=== PATIENT | male | born 1985 | race Caucasian/White ===

== ENCOUNTER → 2025-08-21 | Day surgery (SDC) | payer OTHER ==
[~2025-08-21] MED LIST: ADDERALL XR 3030 MG PO; AMLODIPINE BESY10 MG PO; CYCLOBENZAPRINE5 MG PO; FENTANYL CITRATE/PF 100MCG/2 ML INJ ONE; GLYCOPYRROLATE INJ 0.2 MG/ML VIAL ONE; LIDOCAINE HCL 2% LOCAL INJ 5 ML SDV VIAL INJ ONE; MIDAZOLAM HCL 2 MG/2 ML VIAL ONE; MOTRIN200 MG PO; MULTI-VITAMIN1 EACH PO; OMEPRAZOLE40 MG PO; PROPOFOL IV EMULSION 50 ML IV ONE; [UNRECOGNIZED DRUG - OTHER] PO
[2025-08-21] MEDS: LACTATED RINGER'S 1,000 ML ONE (15:02)
[2025-08-21 17:25] VITALS: TEMP 97
[2025-08-21 17:55] VITALS: BP 140/92; PULSE 78; RESP 18; O2SAT 98
== END | disposition home or self-care (01) ==
LOC: OR 13:55
PROVIDERS: ATTEND Internal Medicine Gastroenterology
DX: K21.9 Gastro-esophageal reflux disease without esophagitis (principal); K44.9 Diaphragmatic hernia without obstruction or gangrene; K31.89 Other diseases of stomach and duodenum; D12.2 Benign neoplasm of ascending colon; K64.8 Other hemorrhoids; K59.00 Constipation, unspecified; I10 Essential (primary) hypertension; Z68.34 Body mass index [BMI] 34.0-34.9, adult; Z79.1 Long term (current) use of non-steroidal anti-inflammatories (NSAID); Z79.899 Other long term (current) drug therapy; Z01.810 Encounter for preprocedural cardiovascular examination
CPT/HCPCS: 43239; 45384; 93005; J2003; J2250; J2704; J3010; J7121